=== PATIENT | male | born 1985 | race Two or more races ===

== ENCOUNTER 2021-05-08 22:52 | Emergency (ER) | payer OTHER ==
[~2021-05-08] VITALS: Ht 193 cm; Wt 81.6 kg
[2021-05-09] MEDS ORDERED: ZYNCOF 20-400120 ML PO (02:25)
== END 2021-05-09 02:36 ==
LOC: ER 22:52
DX: U07.1 COVID-19 (principal); R50.9 Fever, unspecified

== ENCOUNTER 2023-11-23 13:01 | Emergency (ER) | payer OTHER ==
[~2023-11-23] VITALS: Ht 170.2 cm; Wt 108.9 kg
[~2023-11-23 13:01] MED LIST: ZYNCOF 20-400120 ML PO
[2023-11-23] MEDS ORDERED: KETOROLAC TROMETHAMINE 60 MG VIAL IM ONE ×2 (13:57→14:00)
== END 2023-11-23 16:21 | disposition home or self-care (01) ==
LOC: ER 13:02
DX: S86.012A Strain of left Achilles tendon, initial encounter (principal); W18.39XA Other fall on same level, initial encounter; Y93.89 Activity, other specified; Y92.89 Other specified places as the place of occurrence of the external cause

== ENCOUNTER → 2023-12-02 | Outpatient (CLI) | payer OTHER ==
[~2023-12-02] VITALS: Ht 167.6 cm; Wt 111.1 kg
== END | disposition home or self-care (01) ==
LOC: MRI 11:07
PROVIDERS: ATTEND Orthopaedic Surgery
DX: M66.362 Spontaneous rupture of flexor tendons, left lower leg (principal)
CPT/HCPCS: 73718